=== PATIENT | female | born 1995 | race Hispanic/Latino ===

== ENCOUNTER 2017-09-16 18:29 | Observation (INO) | payer OTHER ==
[~2017-09-16] VITALS: Ht 172.7 cm; Wt 84.4 kg
[2017-09-16 19:02] LABS: BASOPHILS # (AUTO) 0.1 (0.0-0.1); BASOPHILS % 0.7 % (0.0-1.0); EOSINOPHILS # (AUTO) 0.1 (0.0-0.4); EOSINOPHILS % 0.9 % (0.0-6.0); LYMPHOCYTES # (AUTO) 2.3 (1.0-3.2); LYMPHOCYTES % 31.5 % (18.0-39.1); MEAN CORPUSCULAR HEMOGLOBIN 26.4 pg (28-32); MEAN CORPUSCULAR HGB CONC 30.8 g/dL (31-35); MEAN CORPUSCULAR VOLUME 85.8 fL (81-99); MONOCYTES # (AUTO) 0.4 (0.2-0.8); MONOCYTES % 4.8 % (4.4-11.3); NEUTROPHILS # (AUTO) 4.6 (2.1-6.9); NEUTROPHILS % 61.7 % (38.7-80.0); PLATELET COUNT 374 x10e3/uL (140-360); RED BLOOD COUNT 2.46 x10e6/uL (3.6-5.1); RED CELL DISTRIBUTION WIDTH 14.4 % (11.7-14.4)
[2017-09-16 19:05] LABS: HEMATOCRIT 21.1 % (34.2-44.1); HEMOGLOBIN 6.5 g/dL (12.0-16.0)
[2017-09-16 19:16] LABS: CLARITY,URINE CLOUDY (CLEAR); COLOR,URINE YELLOW (YELLOW); LEUKOCYTE ESTERASE ,URINE NEGATIVE (NEGATIVE); NITRITE,URINE NEGATIVE (NEGATIVE); PROTEIN,URINE DIPSTICK TRACE (NEGATIVE)
[2017-09-16 19:17] LABS: BILIRUBIN,URINE NEGATIVE (NEGATIVE); KETONES,URINE NEGATIVE (NEGATIVE); URINE UROBILINOGEN 0.2 mg/dL (0.2 - 1)
[2017-09-16 19:19] LABS: ANION GAP 14.3 mmol/L (8-16); BLOOD UREA NITROGEN 13 mg/dL (7-26); BUN/CREATININE RATIO 15 (6-25); CALCIUM 9.3 mg/dL (8.4-10.2); CARBON DIOXIDE 22 mmol/L (22-29); CHLORIDE 108 mmol/L (98-107); CREATININE, SERUM 0.84 mg/dL (0.57-1.11); EST GLOMERULAR FILTRATION RATE > 60 ML/MIN (60-); GLUCOSE 119 mg/dL (74-118); POTASSIUM 3.3 mmol/L (3.5-5.1); SODIUM 141 mmol/L (136-145)
[2017-09-16 19:23] LABS: BACTERIA,URINE RARE /HPF; RBC,URINE >50 /HPF (0-5)
[2017-09-16] MEDS ORDERED: ONDANSETRON HCL INJ 2 MG/ML VIAL IV PRN (21:00)
[2017-09-16] MEDS ORDERED: SODIUM CHLORIDE FLUSH 10 ML SYR INJ PRN (21:00)
[2017-09-16] MEDS ORDERED: SODIUM CHLORIDE 0.9% 500ML 500 ML ONE (22:12)
[2017-09-17 05:30] LABS: BASOPHILS # (AUTO) 0.1 (0.0-0.1); BASOPHILS % 0.9 % (0.0-1.0); EOSINOPHILS # (AUTO) 0.1 (0.0-0.4); EOSINOPHILS % 1.1 % (0.0-6.0); HEMATOCRIT 24.9 % (34.2-44.1); LYMPHOCYTES # (AUTO) 3.1 (1.0-3.2); LYMPHOCYTES % 38.8 % (18.0-39.1); MEAN CORPUSCULAR HEMOGLOBIN 27.8 pg (28-32); MEAN CORPUSCULAR HGB CONC 32.1 g/dL (31-35); MEAN CORPUSCULAR VOLUME 86.5 fL (81-99); MONOCYTES # (AUTO) 0.6 (0.2-0.8); MONOCYTES % 7.9 % (4.4-11.3); NEUTROPHILS # (AUTO) 4.1 (2.1-6.9); NEUTROPHILS % 51.1 % (38.7-80.0); PLATELET COUNT 319 x10e3/uL (140-360); RED BLOOD COUNT 2.88 x10e6/uL (3.6-5.1); RED CELL DISTRIBUTION WIDTH 14.3 % (11.7-14.4)
[2017-09-17 05:51] LABS: ALANINE AMINOTRANSFERASE 19 IU/L (0-55); ALBUMIN/GLOBULIN RATIO 1.2 (0.8-2.0); ALKALINE PHOSPHATASE 43 IU/L (40-150); ANION GAP 10.4 mmol/L (8-16); BLOOD UREA NITROGEN 10 mg/dL (7-26); BUN/CREATININE RATIO 14 (6-25); CALCIUM 7.8 mg/dL (8.4-10.2); CARBON DIOXIDE 22 mmol/L (22-29); CHLORIDE 113 mmol/L (98-107); CREATININE, SERUM 0.72 mg/dL (0.57-1.11); EST GLOMERULAR FILTRATION RATE > 60 ML/MIN (60-); GLUCOSE 92 mg/dL (74-118); POTASSIUM 3.4 mmol/L (3.5-5.1); SODIUM 142 mmol/L (136-145)
[2017-09-17] MEDS ORDERED: MEDROXYPROGESTERONE ACETATE 150 MG/ML VIAL IM ONE (09:00)
--- NOTE | 2017-09-17 13:13 | Diagnostic Imaging Report ---
PROCEDURE: Transabdominal ultrasound imaging of the pelvis was performed. Patient declined transvaginal imaging. TECHNIQUE: Grayscale and color Doppler transabdominal ultrasound was performed of the pelvis. COMPARISON: None. INDICATIONS: 22 year-old female, G0, with abnormal uterine bleeding. Last menstrual period was 08/18/2017 FINDINGS: UTERUS: The uterus is anteverted and measures 8.4 x 3.4 x 4.3 cm. No uterine masses. The endometrial echocomplex measures 0.4 cm. Homogenous echotexture of the endometrial stripe without focal thickening. OVARIES/ADNEXA: The right ovary measures 4.4 x 3.4 x 2.6 cm. The left ovary measures 3.9 x 3.3 x 3.1 cm. No ovarian cyst or masses. CUL-DE-SAC: No free fluid. IMPRESSION: Unremarkable transabdominal pelvic ultrasound Dictated by: Murali Marie M.D. on 09/17/2017 at 13:18 Electronically approved by: Murali Marie M.D. on 09/17/2017 at 13:18
[2017-09-17 14:25] VITALS: BP 120/72
[2017-09-17 14:27] VITALS: BP 120/72
[2017-09-17] MEDS ORDERED: NORGESTIMATE-E1 EAC1 PO (15:09)
--- NOTE | 2017-09-17 16:23 | History and Physical ---
HISTORY OF PRESENT ILLNESS: A 22-year-old female who has a past medical history positive for anemia from before, came here with weakness, vaginal bleed. She was found to have anemia. He was given blood transfusion. She is feeling a lot better right now. She was seen by [facility], who recommended to start her with Depo-Provera and follow up as an outpatient and then to go home with iron. Patient is doing better right now. REVIEW OF SYSTEMS: CARDIOVASCULAR: No chest pain or palpitation. RESPIRATORY: No shortness of breath. No cough. GASTROINTESTINAL: No nausea, no vomiting, no diarrhea. GENITOURINARY: No frequency, no dysuria, but she did have a heavy menstrual period. SOCIAL HISTORY: She does not smoke. She does not drink. ALLERGIES: NOT ALLERGIC TO ANY MEDICATION PAST MEDICAL HISTORY: Negative except for anemia. PHYSICAL EXAMINATION: VITAL SIGNS: Blood pressure 120/72, temperature 98.5, heart rate 74 per minute, respiratory rate is 20 per minute, oxygen pressure 100%. LABORATORY DATA: On the BMP: Sodium 142, potassium 3.4, chloride 113, CO2 22, BUN 10, creatinine 0.72, glucose 92. On the CBC: White blood count 8.01, hemoglobin 8.0, hematocrit 24.9, platelet count 319,000. AST 16, ALT 19, total bilirubin 0.2, alkaline phosphatase of 43. FINAL IMPRESSION: 1. Heavy menstrual periods most likely secondary to polycystic ovarian syndrome. 2. Acute anemia secondary to a heavy menstrual period. Patient is going to be discharged on Provera and also iron daily and follow up with Dr. Puga, gynecology, as an outpatient. Job#: [id number] EV
[2017-09-17] MEDS ORDERED: POTASSIUM CHLORIDE 20 MEQ TAB CR PO ONE (16:30)
--- NOTE | 2017-09-17 19:41 | Discharge Summary ---
HOSPITAL COURSE: A 22 years old female with a past medical history positive for heavy menstrual period and also anemia, came here with heavy menstrual period and feeling extremely weak. She was found to be very anemic. She received blood transfusion. Her hemoglobin went from 6.5 to 8.0 today. She is feeling a lot better. Her potassium was borderline low at 3.4. We are going to replace the potassium and she is going home today. Dr. Weldon, thread puller, saw the patient who recommended to continue Depo-Provera, to be seen as an outpatient in the [facility] with Dr. Weldon and continue as an outpatient, so she is going home today. PHYSICAL EXAM HEART: Regular rhythm. Normal S1 and S2 sounds. LUNGS: Clear bilaterally. ABDOMEN: Soft. EXTREMITIES: Show no evidence of cyanosis, edema, or trauma. VITAL SIGNS: Blood pressure 120/72, temperature 98.5, heart rate 74 per minute, respiratory rate 20 per minute, and oxygen saturation 100%. FINAL IMPRESSION 1. Acute anemia secondary to dysfunctional uterine bleeding. 2. Dysfunctional uterine bleeding. 3. Obesity. PLAN OF TREATMENT: Continue Provera as recommended by the thread puller and also iron 1 tablet daily. Follow up with Dr. Puga, [facility], as an outpatient. All the questions have been answered to the patient. The patient is stable enough to go home. BERKLEY ALVAREZ MD Job#: [id number] DAVID
== END 2017-09-17 18:37 | disposition home or self-care (01) ==
LOC: ER 18:29 → ERHOLD 20:58 → IMCU 09-17 14:01
PROVIDERS: ADMIT Internal Medicine; ATTEND Internal Medicine
DX: D62 Acute posthemorrhagic anemia (principal); N93.8 Other specified abnormal uterine and vaginal bleeding; E66.9 Obesity, unspecified; Z68.28 Body mass index [BMI] 28.0-28.9, adult
CPT/HCPCS: 36415 ×2; 36430 ×3; 76856; 80048; 80053; 81001; 81025; 83036; 84146; 84443; 85025 ×2; 86850; 86900; 86920; 99284; G0378 ×2; J7040; P9016 ×2; 93005